=== PATIENT | female | born 1960 | race Caucasian/White ===

== ENCOUNTER 2018-09-01 11:48 | Emergency (ER) | payer OTHER ==
[~2018-09-01] VITALS: Ht 165.1 cm; Wt 102.0 kg
[2018-09-01 11:52] VITALS: BP 124/75
[2018-09-01] MEDS ORDERED: ketorolac trometh inj. 60 MG/2 ML VIAL IM ONE (12:05)
[2018-09-01] MEDS ORDERED: CYCL-1 PO (12:06)
== END 2018-09-01 12:15 | disposition home or self-care (01) ==
LOC: ER 11:49
DX: S46.911A Strain of unspecified muscle, fascia and tendon at shoulder and upper arm level, right arm, initial encounter (principal); I10 Essential (primary) hypertension; M62.830 Muscle spasm of back; Z88.8 Allergy status to other drugs, medicaments and biological substances; Z60.2 Problems related to living alone; X58.XXXA Exposure to other specified factors, initial encounter; Y93.89 Activity, other specified; Y92.89 Other specified places as the place of occurrence of the external cause; Y99.8 Other external cause status
CPT/HCPCS: 96372; 99283; J1885